=== PATIENT | male | born 2005 | race Caucasian/White ===

== ENCOUNTER 2025-02-05 19:47 | Emergency (ER) | payer OTHER, SELFPAY ==
[2025-02-05 19:48] VITALS: BP 121/85; PULSE 92; RESP 18; TEMP 36.6; O2SAT 98
--- NOTE | 2025-02-05 20:15 | DI.RAD_ITS ---
Exam(s) XR HAND LT COMPLETE EXAM: XR HAND LT COMPLETE CLINICAL HISTORY: left hand injury. TECHNIQUE: 2D digital imaging was performed. Three views. COMPARISON: No exams were available for comparison FINDINGS: BONES: No acute fracture is present. No bony destructive lesion is seen. JOINTS: No dislocation present. SOFT TISSUE: Normal. IMPRESSION: Unremarkable radiographs of the left hand. The preliminary [facility] report was reviewed. DATA REPOSITORY: RADIATION DOSE DELIVERED:
--- NOTE | 2025-02-05 20:42 | DI.[facility]_ITS ---
PROCEDURE INFORMATION: Exam: XR Left Hand Exam date and time: 02/05/2025 8:33 PM Age: 19 years old Clinical indication: Injury or trauma; Blunt trauma (contusions or hematomas); Injury details: Left hand injury, wood hit lt hand TECHNIQUE: Imaging protocol: Radiologic exam of the left hand. Views: 3 or more views. COMPARISON: No relevant prior studies available. FINDINGS: Bones/joints: No acute fracture or dislocation. No suspicious bony lesions. Soft tissues: Unremarkable. IMPRESSION: 1. No acute radiographic findings. 2. If pain persists, consider repeat imaging in 5-7 days to exclude occult fracture. Dictated and Authenticated by: Nita Mansfield MD. Orderin Isaias Leon MD
--- NOTE | 2025-02-08 08:37 | ED.GENADUL_ITS ---
Discharge Plan Disposition Patient Disposition: Home Condition: Stable Discharge Details Clinical Impression: Contusion of hand, left Primary Care Provider: None,None ED Provider: Carolyn Esparza Home Meds and New Rx's Prescriptions: No Action No Known Home Meds Discharge Instructions Instructions: Acute Pain, Adult, Minor Contusion ED Additional Instructions: Take Motrin and Tylenol as needed for pain apply ice and elevate Should your pain persist longer than 1 week, recommendation for repeat x-ray and assessment Should any new concerns arise, please return earlier for reassessment Stand Alone Forms: Portal Information Discharge Data Discharge Date/Time-TO BE ENTERED AT DEPARTURE: 02/06/25 05:18 HPI General Date/Time Provider Initiated Documentation: 02/05/25 19:55 . HPI Narrative: This 19-year-old male presents with injury to left hand just prior to arrival. He states that he was loading some wood and it kicked back hitting his hand. He had a previous injury last week that is actually feeling improved and patient is concerned he reinjured it after this episode today. He was not previously evaluated if the pain is worse with movement the 2nd and 3rd MCP joints. Denies any additional injuries and is otherwise healthy per patient. Related Data Home Medications Medication Instructions Recorded Confirmed Unknown [No Known Home Meds] 02/05/25 1 04/07/24 Allergies Allergy/AdvReac Type Severity Reaction Status Date / Time No Known Allergies Allergy Unverified 02/05/25 19:52 General Stated Complaint: Orthopedic LONG: 4 Exam Narrative Exam Narrative: Alert and oriented 19-year-old male in no acute distress left hand with tenderness overlying the dorsal aspect of hand MCP 2nd and 3rd, neurovascularly intact no tenderness to wrist Course Vital Signs Vital signs: Vital Signs Temperature 36.6 C 02/05/25 19:48 Pulse 92 H 02/05/25 19:48 Respiratory Rate 18 02/05/25 19:48 Blood Pressure 121/85 02/05/25 19:48 Pulse Oximetry 98 02/05/25 19:48 Temperature 36.6 C 02/05/25 19:48 Pulse 92 H 02/05/25 19:48 Respiratory Rate 18 02/05/25 19:48 Blood Pressure 121/85 02/05/25 19:48 Pulse Oximetry 98 02/05/25 19:48 Pain Level 4 02/05/25 19:48 Medical Decision Making Results: Hand x-ray per radiology interpretation my review does not show acute pathology Assessment and plan: Patient likely has contusion to his hand from injury. Offered work note which patient declined. Encouraged ice, return, and repeat assessment with persistent pain greater than 5 days return precautions reviewed and patient PFSH All Active Problems (Updated 02/05/25 @ 20:54 by KERA Hylton) Contusion of hand, left (Acute) Social History Smoking/Tobacco Use Status: Never Smoking risk assessment performed?: Yes Alcohol Intake: never Drug use: Never Substance use type: does not use Housing: house Do you feel safe at home: Yes Do you feel safe in your relationship?: Yes
== END 2025-02-06 05:18 | disposition home or self-care (01) ==
PROVIDERS: Emergency Provider Physician Assistant
DX: S60.222A Contusion of left hand, initial encounter (principal); W20.8XXA Other cause of strike by thrown, projected or falling object, initial encounter
CPT/HCPCS: 99283 ×2; 73130